=== PATIENT | female | born 2000 | race American Indian/Alaskan Native ===

== ENCOUNTER 2021-04-21 19:25 | Emergency (ER) | payer SELFPAY ==
[2021-04-21 19:49] VITALS: BP 121/80
[2021-04-21 21:03] LABS: Basophils # (Auto) 0.1 K/mm3 (0.0-0.1); Basophils % (Auto) 0.6 % (0.0-1.8); Eosinophils % (Auto) 0.5 % (0.0-4.3); Hematocrit 33.8 % (30.3-42.9); Hemoglobin 10.9 gm/dl (10.1-14.3); Lymphocytes # (Auto) 2.4 K/mm3 (1.2-5.4); Lymphocytes % (Auto) 26.9 % (13.4-35.0); Mean Corpuscular HGB Conc 32 % (30-34); Mean Corpuscular Volume 85 fl (79-97); Monocytes # (Auto) 0.7 K/mm3 (0.0-0.8); Monocytes % (Auto) 8.1 % (0.0-7.3); Platelet Count 272 K/mm3 (140-440); Red Blood Count 3.97 M/mm3 (3.65-5.03); Red Cell Distribution Width 17.8 % (13.2-15.2)
[2021-04-21 21:10] LABS: Bilirubin,Urine NEG (Negative); Blood,Urine NEG (Negative); Color,Urine Yellow (Yellow); Mucus,Urine FEW /HPF; Protein,Urine <15 mg/dL mg/dL (Negative); Urobilinogen,Urine < 2.0 mg/dL (<2.0)
[2021-04-21 21:24] LABS: Alanine Aminotransferase 8 units/L (7-56); Albumin 5.1 g/dL (3.9-5); Blood Urea Nitrogen 5 mg/dL (7-17); Calcium 9.9 mg/dL (8.4-10.2); Hemolysis Index 102
[2021-04-21 21:25] LABS: BUN/Creatinine Ratio 8
[2021-04-21] MEDS: FAMOTIDINE 20 MG TAB PO ONE ×2 (21:25→21:48)
[2021-04-21] MEDS: ACETAMINOPHEN 325 MG/10.15 ML ORAL LIQD UNIT DOSE PO ONE ×2 (21:25→21:48)
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
== END 2021-04-22 03:18 | disposition home or self-care (01) ==
LOC: ED 19:25
DX: S39.011A Strain of muscle, fascia and tendon of abdomen, initial encounter (principal); M62.838 Other muscle spasm; V49.59XA Passenger injured in collision with other motor vehicles in traffic accident, initial encounter; Z3A.01 Less than 8 weeks gestation of pregnancy; X58.XXXA Exposure to other specified factors, initial encounter; Y93.89 Activity, other specified; Y92.89 Other specified places as the place of occurrence of the external cause; Y99.8 Other external cause status
CPT/HCPCS: 36415; 72040; 76801; 80053; 81001; 84702; 85025; 99284